=== PATIENT | female | born 1965 | race Caucasian/White ===

== ENCOUNTER → 2018-12-01 | Outpatient (CLI) | payer BC ==
[~2018-12-01] MED LIST: VENL150ER PO
== END | disposition home or self-care (01) ==
LOC: PLD 15:08 → LAB SHORT 15:08
DX: N87.0 Mild cervical dysplasia (principal); N72 Inflammatory disease of cervix uteri; R23.4 Changes in skin texture
CPT/HCPCS: 88305

== ENCOUNTER 2019-09-01 10:54 | Day surgery (SDC) | payer BC ==
[~2019-09-01] VITALS: Ht 162.6 cm; Wt 55.5 kg
--- NOTE | 2019-09-01 12:02 | NUR ---
Ambulatory in Day Surgery History, Chart, Medications and Allergies reviewed before start of procedure.Lungs clear T/O to Auscultation. Patient confirms NPO status and agrees with scheduled surgery. Patient States Post-Procedure ride home has been arranged. Patient states colon prep results clear.
--- NOTE | 2019-09-01 12:34 | NUR ---
09/01/19 1234 Osman Garza PATIENT DETERMINED TO BE ASA APPROPRIATE FOR PROPOFOL SEDATION PRIOR TO START OF PROCEDURE BY . 3-LEAD EKG REVIEWED WITH PHYSICIAN PRIOR TO START OF PROCEDURE.PATIENT CONFIRMS NPO STATUS AND AGREES WITH SCHEDULED PROCEDURE.History, Chart, Medications and Allergies reviewed before start of procedure.MONITOR INTACT WITH CONTINUOUS PULSE OXIMETRY AND INTERMITTENT BP.O2 VIA N/C INTACT THROUGHOUT SEDATION/PROCEDURE.
--- NOTE | 2019-09-01 13:44 | NUR ---
Patient up to Ambulate independently. Gait steady. Discharge instructions reviewed with patient. Patient verbalizes understanding. Copy given to patient to take home. Patient States Post-Procedure ride home has been arranged. Discharged via wheelchair to private car for ride home.
== END 2019-09-01 23:13 | disposition home or self-care (01) ==
LOC: ORSCMMR 10:54 → ORD 12:30 → ORSCMMR 23:13
PROVIDERS: Internal Medicine Gastroenterology
PROC: 0DBE8ZX Excision of Large Intestine, Via Natural or Artificial Opening Endoscopic, Diagnostic (ICD-10-PCS; principal; 2019-09-01 12:30)
DX: K62.5 Hemorrhage of anus and rectum (principal); R19.7 Diarrhea, unspecified; K51.90 Ulcerative colitis, unspecified, without complications; R63.4 Abnormal weight loss; R10.9 Unspecified abdominal pain; F41.8 Other specified anxiety disorders
CPT/HCPCS: 88305; J2704; J7120

== ENCOUNTER → 2020-03-01 | Outpatient (CLI) | payer BC | END | disposition home or self-care (01) | LOC: LAB 13:12 → LAB SHORT 13:12 → LAB FUT 12-02 15:55 | DX: K51.90 Ulcerative colitis, unspecified, without complications (principal) | CPT/HCPCS: 83993 ==